=== PATIENT | male | born 2000 | race Caucasian/White ===

== ENCOUNTER 2022-12-04 04:49 | Outpatient (CLI) | payer BC, SELFPAY | END 2022-12-04 04:50 | disposition home or self-care (01) | LOC: LBO 04:49 | DX: F41.8 Other specified anxiety disorders (principal); Z11.4 Encounter for screening for human immunodeficiency virus [HIV]; Z11.59 Encounter for screening for other viral diseases | CPT/HCPCS: 36415; 86803; 87389; 84439; 84443; 86592 ==

== ENCOUNTER 2023-01-17 21:12 | Emergency (ER) | payer BC, SELFPAY ==
[2023-01-17 21:16] VITALS: BP 136/85; PULSE 81; RESP 14; TEMP 36.8; O2SAT 99
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
== END 2023-01-17 21:47 | disposition home or self-care (01) ==
PROVIDERS: Emergency Provider Nurse Practitioner Acute Care
DX: S00.83XA Contusion of other part of head, initial encounter; S60.512A Abrasion of left hand, initial encounter; Z23 Encounter for immunization; W00.0XXA Fall on same level due to ice and snow, initial encounter; Y92.481 Parking lot as the place of occurrence of the external cause; Y99.0 Civilian activity done for income or pay
CPT/HCPCS: 90471; 99282